=== PATIENT | male | born 1945 | race Caucasian/White ===

== ENCOUNTER 2020-01-06 17:55 | Emergency (ER) | payer MEDICARE, OTHER ==
[~2020-01-06] VITALS: Ht 172.7 cm; Wt 82.5 kg
[2020-01-06 18:01] VITALS: BP 160/101
--- NOTE | 2020-01-06 18:46 | NUR ---
Pt to room from lobby.
[2020-01-06] MEDS ORDERED: LIDOCAINE 1%-EPI 1:100K, 20ML ONE (19:43)
[2020-01-06] MEDS ORDERED: LIDOCAINE 1%-EPI 1:100K, 20ML INFIL ONE (20:00)
[2020-01-06] MEDS ORDERED: TRANEXAMIC ACID 100 MG/ML, 10ML TP ONE (20:00)
[2020-01-06] MEDS ORDERED: TRANEXAMIC ACID 100 MG/ML, 10ML ONE (20:02)
[2020-01-06] MEDS ORDERED: HYDROCORTISONE 25 MG SUPP PR ONE (20:30)
--- NOTE | 2020-01-06 20:35 | NUR ---
PT IN BED, PRONE PER ERP. DENIES ANY NEEDS OR CONCERNS AT THIS TIME. CALL LIGHT IN REACH. MEDICATION REQUESTED FROM PHARMACY.
[2020-01-06] MEDS ORDERED: PLEASE ENTER ALLERGIES MC SCH (21:00)
[2020-01-06 22:00] LABS: BASOPHILS # (AUTO) 0.02 x10^3/uL (0-0.1); BASOPHILS % (AUTO) 0 % (0-1); EOSINOPHILS # (AUTO) 0.19 x10^3/uL (0-0.4); EOSINOPHILS % (AUTO) 2 % (1-7); LYMPHOCYTES # (AUTO) 2.08 x10^3/uL (1-3.4); LYMPHOCYTES % (AUTO) 24 % (22-44); MD NO; MEAN CORPUSCULAR HEMOGLOBIN 30.8 pg (27.5-34.5); MEAN CORPUSCULAR VOLUME 93.3 fL (81-97); MEAN PLATELET VOLUME 9.2 fL (7.4-10.4); MONOCYTES # (AUTO) 0.65 x10^3/uL (0.2-0.8); MONOCYTES % (AUTO) 8 % (2-9); NEUTROPHILS # (AUTO) 5.61 x10^3/uL (1.8-6.8); NEUTROPHILS % (AUTO) 66 % (42-75); PLATELET COUNT 154 x10^3/uL (130-400); RED BLOOD COUNT 4.47 x10^6/uL (4.38-5.82); RED CELL DISTRIBUTION WIDTH 13.7 % (9.4-14.8)
== END 2020-01-06 22:39 | disposition home or self-care (01) ==
LOC: ED 21:38
DX: K64.4 Residual hemorrhoidal skin tags (principal); I10 Essential (primary) hypertension
CPT/HCPCS: 36415; 85025; 99283